=== PATIENT | male | born 1990 | race Caucasian/White ===

== ENCOUNTER 2019-07-31 15:41 | Inpatient (IN) | payer OTHER ==
[~2019-07-31] VITALS: Ht 172.7 cm; Wt 126.5 kg
[2019-07-31 16:54] LABS: BASOPHILS % (AUTO) 0.5 % (0.0-2.0); EOSINOPHILS % (AUTO) 0.3 % (1.0-6.0); HEMATOCRIT 46.5 % (41-53); HEMOGLOBIN 15.9 g/dL (13.5-17.5); LYMPHOCYTES # (AUTO) 1.4 K/uL (1.0-4.8); LYMPHOCYTES % (AUTO) 14.1 % (22.0-44.0); MEAN CORPUSCULAR HEMOGLOBIN 29.3 pg (26.0-34.0); MEAN CORPUSCULAR HGB CONC 34.2 G/dL (31.0-37.0); MEAN CORPUSCULAR VOLUME 86 fL (80-100); MONOCYTES # (AUTO) 0.6 K/uL (0.1-1.0); MONOCYTES % (AUTO) 5.7 % (2.0-9.0); NEUTROPHILS # (AUTO) 7.8 K/uL (1.8-7.7); NEUTROPHILS % (AUTO) 79.4 % (40.0-70.0); PLATELET COUNT (AUTO) 227 K/uL (150-450); RED BLOOD CELL COUNT(AUTO) 5.42 MIL/uL (4.50-5.90); RED CELL DISTRIBUTION WIDTH 13.6 % (11.5-14.5)
[2019-07-31 17:06] LABS: ANION GAP 8 mmol/L (8-16); CALCIUM, TOTAL 9.3 mg/dL (8.8-10.5); CARBON DIOXIDE 29 mmol/L (22-29); CHLORIDE 99 mmol/L (98-107); CREATININE 1.22 mg/dL (0.60-1.30); GLOMERULAR FILTR. RATE CALC > 60 mL/min (>60); GLUCOSE,RANDOM 104 mg/dL (70-110); POTASSIUM 3.8 mmol/L (3.5-5.1); SODIUM SERUM 136 mmol/L (136-145); UREA NITROGEN, BLOOD 15 mg/dL (7-18)
[2019-07-31 17:25] LABS: D-DIMER 0.18 mg/L FEU (0.00-0.50); PROTHROMBIN TIME 9.8 SEC (9.4-11.6)
[2019-07-31 17:27] LABS: B-TYPE NATRIURETIC PEPTIDE 14 pg/mL (0-100)
[2019-07-31 17:30] LABS: ALANINE AMINOTRANSFERASE 54 U/L (12-78); ALBUMIN 3.9 g/dL (3.4-5.0); ALKALINE PHOSPHATASE 124 U/L (46-116); ASPARTATE AMINOTRANSFERASE 23 U/L (15-37); BILIRUBIN,TOTAL 0.3 mg/dL (0.1-1.0); CREATINE KINASE, TOTAL ONLY 104 U/L (39-308); THYROID STIMULATING HORMONE 0.93 uIU/mL (0.36-3.74); TOTAL PROTEIN, SERUM 7.6 g/dL (6.4-8.2)
[2019-07-31] MEDS ORDERED: SODIUM CHLORIDE 0.9% IV ONE (18:24)
[2019-07-31] MEDS ORDERED: CefTRIAXone SODIUM 2 GM in DEXTROSE 5%-WATER 50 ML IV ONE (18:30)
[2019-07-31] MEDS ORDERED: AZITHROMYCIN 500 MG/NS 250 ML IV ONE (18:30)
[2019-07-31 18:57] LABS: AMPHET/METH SCREEN,URINE NEGATIVE (NEGATIVE); BARBITURATE SCREEN, URINE NEGATIVE (NEGATIVE); BENZODIAZEPINES SCREEN,URINE NEGATIVE (NEGATIVE); CANNABINOID SCREEN,URINE NEGATIVE (NEGATIVE); COCAINE SCREEN,URINE NEGATIVE (NEGATIVE); METHADONE SCREEN, URINE NEGATIVE (NEGATIVE); OPIATE SCREEN,URINE NEGATIVE (NEGATIVE)
[2019-07-31 18:58] LABS: APPEARANCE,URINE CLEAR (CLEAR); BILIRUBIN,URINE NEGATIVE (NEGATIVE); GLUCOSE, URINE (UA) NEGATIVE (NEGATIVE); KETONES,URINE NEGATIVE (NEGATIVE); LEUKOCYTE ESTERASE ,URINE NEGATIVE (NEGATIVE); NITRATE,URINE NEGATIVE (NEGATIVE); OCCULT BLOOD,URINE SMALL (NEGATIVE); PH,URINE 6.5 (5.0-8.0); PROTEIN,URINE SEE CONFIRM (NEGATIVE); UROBILINOGEN,URINE 0.2 mg/dL (<=1.0)
[2019-07-31 19:00] LABS: PHENCYCLIDINE SCREEN,URINE NEGATIVE (NEGATIVE)
[2019-07-31 19:13] LABS: SULFOSALICYLIC ACID,URINE 2+ (Negative)
[2019-07-31 19:14] LABS: BACTERIA,URINE None Seen /HPF (None Seen); RBC,URINE 0-2 /HPF (0-2); SQUAMOUS EPITHELIAL CELL,UR Few /LPF (None Seen); WBC,URINE 0-2 /HPF (0-5)
[2019-07-31 21:25] LABS: INFLUENZA TYPE A NEGATIVE FOR TYPE A (NEGATIVE); INFLUENZA TYPE B NEGATIVE FOR TYPE B (NEGATIVE)
[2019-07-31] MEDS ORDERED: ONDANSETRON HCL 4 MG/2 ML VIAL IVP PRN ×2 (22:00→22:15)
[2019-07-31] MEDS ORDERED: ACETAMINOPHEN 325 MG TABLET PO PRN ×2 (22:00→22:15)
[2019-07-31] MEDS ORDERED: MORPHINE SULFATE 2 MG/ML SYRINGE IVP PRN (22:15)
[2019-07-31] MEDS ORDERED: ZOLPIDEM TARTRATE 5 MG TABLET PO PRN (22:15)
[2019-07-31] MEDS ORDERED: IPRATROPIUM BROMIDE 0.5 MG/2.5 ML NEB SOLUTION NEB PRN (22:15)
[2019-07-31] MEDS ORDERED: ALBUTEROL SULFATE 2.5 MG/0.5 ML NEB SOLUTION NEB PRN (22:15)
[2019-07-31] MEDS ORDERED: SODIUM CHLORIDE 0.9% 1,000 ML IV ONE (22:15)
[2019-07-31] MEDS ORDERED: BISACODYL 10 MG RECTAL RECTAL SUPPOSITORY PR PRN (22:15)
[2019-07-31] MEDS ORDERED: MAGNESIUM HYDROXIDE SUSPENSION 30 ML UDCUP PO PRN (22:15)
[2019-07-31] MEDS ORDERED: HYDROCODONE/ACETAMINOPHEN 5-325 MG TABLET PO PRN (22:15)
[2019-07-31 22:55] LABS: PHOSPHORUS 2.9 mg/dL (2.5-4.9)
[2019-08-01] VITALS (10 sets, daily range): BP systolic 131–162; BP diastolic 81–116
[2019-08-01] MEDS: METOPROLOL TARTRATE 25 MG TABLET PO SCH ×3 (00:03→21:37)
[2019-08-01] MEDS: LEVOFLOXACIN 750 MG/D5% WATER 150 ML IV SCH (02:37)
[2019-08-01 07:11] LABS: BASOPHILS % (AUTO) 0.5 % (0.0-2.0); EOSINOPHILS % (AUTO) 0.5 % (1.0-6.0); HEMOGLOBIN 14.9 g/dL (13.5-17.5); LYMPHOCYTES # (AUTO) 1.7 K/uL (1.0-4.8); LYMPHOCYTES % (AUTO) 21.4 % (22.0-44.0); MEAN CORPUSCULAR HGB CONC 34.8 G/dL (31.0-37.0); MEAN CORPUSCULAR VOLUME 86 fL (80-100); MONOCYTES # (AUTO) 0.8 K/uL (0.1-1.0); MONOCYTES % (AUTO) 10.2 % (2.0-9.0); NEUTROPHILS # (AUTO) 5.4 K/uL (1.8-7.7); NEUTROPHILS % (AUTO) 67.4 % (40.0-70.0); PLATELET COUNT (AUTO) 193 K/uL (150-450); RED BLOOD CELL COUNT(AUTO) 4.98 MIL/uL (4.50-5.90); RED CELL DISTRIBUTION WIDTH 13.6 % (11.5-14.5)
[2019-08-01 07:21] LABS: ANION GAP 9 mmol/L (8-16); CALCIUM, TOTAL 8.5 mg/dL (8.8-10.5); CARBON DIOXIDE 26 mmol/L (22-29); CHLORIDE 104 mmol/L (98-107); CREATININE 1.07 mg/dL (0.60-1.30); GLOMERULAR FILTR. RATE CALC > 60 mL/min (>60); GLUCOSE,RANDOM 97 mg/dL (70-110); POTASSIUM 3.5 mmol/L (3.5-5.1); SODIUM SERUM 139 mmol/L (136-145); UREA NITROGEN, BLOOD 12 mg/dL (7-18)
[2019-08-01] MEDS: PANTOPRAZOLE SODIUM 40 MG DR TABLET PO SCH (08:55)
[2019-08-01] MEDS: DOCUSATE SODIUM 100 MG CAPSULE PO SCH ×2 (08:55→21:37)
[2019-08-01] MEDS: HEPARIN SODIUM,PORCINE 5,000 UNITS/ML VIAL SQ SCH ×3 (08:55→17:21)
[2019-08-01] MEDS: NICOTINE 14 MG/24 HOUR PATCH TD SCH (08:56)
[2019-08-01] MEDS ORDERED: METOPROLOL TARTRATE 25 MG TABLET PO SCH (09:00)
[2019-08-01] MEDS ORDERED: LEVO250T75 PO (11:16)
[2019-08-01] MEDS ORDERED: METO25 PO (11:16)
[2019-08-01] MEDS ORDERED: IOVERSOL 350 MG/ML 150 ML VIAL ONE (12:20)
[2019-08-01] MEDS ORDERED: SODIUM CHLORIDE 0.9% 100 ML ONE (12:21)
[2019-08-02] MEDS ORDERED: SODIUM CHLORIDE 0.9% 250 ML IV ONE (00:25)
[2019-08-02] MEDS: LEVOFLOXACIN 750 MG/D5% WATER 150 ML IV SCH (00:41)
[2019-08-02] MEDS: HEPARIN SODIUM,PORCINE 5,000 UNITS/ML VIAL SQ SCH ×3 (00:41→17:38)
[2019-08-02 04:56] VITALS: BP 149/104
[2019-08-02 07:25] VITALS: BP 142/111
[2019-08-02 07:46] LABS: BASOPHILS % (AUTO) 0.4 % (0.0-2.0); EOSINOPHILS % (AUTO) 1.3 % (1.0-6.0); HEMATOCRIT 44.6 % (41-53); HEMOGLOBIN 15.3 g/dL (13.5-17.5); LYMPHOCYTES # (AUTO) 1.8 K/uL (1.0-4.8); LYMPHOCYTES % (AUTO) 23.3 % (22.0-44.0); MEAN CORPUSCULAR HEMOGLOBIN 29.3 pg (26.0-34.0); MEAN CORPUSCULAR HGB CONC 34.2 G/dL (31.0-37.0); MEAN CORPUSCULAR VOLUME 86 fL (80-100); MONOCYTES # (AUTO) 0.8 K/uL (0.1-1.0); MONOCYTES % (AUTO) 10.7 % (2.0-9.0); NEUTROPHILS # (AUTO) 5.1 K/uL (1.8-7.7); NEUTROPHILS % (AUTO) 64.3 % (40.0-70.0); PLATELET COUNT (AUTO) 214 K/uL (150-450); RED BLOOD CELL COUNT(AUTO) 5.21 MIL/uL (4.50-5.90); RED CELL DISTRIBUTION WIDTH 13.7 % (11.5-14.5)
[2019-08-02 08:04] LABS: ANION GAP 8 mmol/L (8-16); CALCIUM, TOTAL 9.2 mg/dL (8.8-10.5); CARBON DIOXIDE 27 mmol/L (22-29); CHLORIDE 100 mmol/L (98-107); CREATININE 0.99 mg/dL (0.60-1.30); GLOMERULAR FILTR. RATE CALC > 60 mL/min (>60); GLUCOSE,RANDOM 92 mg/dL (70-110); POTASSIUM 4.1 mmol/L (3.5-5.1); SODIUM SERUM 135 mmol/L (136-145); UREA NITROGEN, BLOOD 11 mg/dL (7-18)
[2019-08-02] MEDS: METOPROLOL TARTRATE 25 MG TABLET PO SCH ×2 (08:15→21:08)
[2019-08-02] MEDS: PANTOPRAZOLE SODIUM 40 MG DR TABLET PO SCH (08:15)
[2019-08-02] MEDS: NICOTINE 14 MG/24 HOUR PATCH TD SCH (08:15)
[2019-08-02] MEDS: DOCUSATE SODIUM 100 MG CAPSULE PO SCH ×2 (08:16→21:08)
[2019-08-02 11:15] VITALS: BP 162/118
[2019-08-02 15:10] VITALS: BP 162/90
[2019-08-02] MEDS: AmLODIPine BESYLATE 5 MG TABLET PO SCH (17:38)
[2019-08-02 21:09] VITALS: BP 173/105
[2019-08-02 23:56] VITALS: BP 142/91
[2019-08-03 04:10] VITALS: BP 136/98
[2019-08-03 05:41] LABS: BASOPHILS % (AUTO) 0.6 % (0.0-2.0); EOSINOPHILS % (AUTO) 2.3 % (1.0-6.0); HEMATOCRIT 43.9 % (41-53); HEMOGLOBIN 15.2 g/dL (13.5-17.5); LYMPHOCYTES # (AUTO) 1.9 K/uL (1.0-4.8); LYMPHOCYTES % (AUTO) 24.7 % (22.0-44.0); MEAN CORPUSCULAR HEMOGLOBIN 29.8 pg (26.0-34.0); MEAN CORPUSCULAR HGB CONC 34.5 G/dL (31.0-37.0); MEAN CORPUSCULAR VOLUME 86 fL (80-100); MONOCYTES # (AUTO) 0.8 K/uL (0.1-1.0); MONOCYTES % (AUTO) 9.9 % (2.0-9.0); NEUTROPHILS # (AUTO) 4.7 K/uL (1.8-7.7); NEUTROPHILS % (AUTO) 62.5 % (40.0-70.0); PLATELET COUNT (AUTO) 219 K/uL (150-450); RED BLOOD CELL COUNT(AUTO) 5.08 MIL/uL (4.50-5.90); RED CELL DISTRIBUTION WIDTH 13.8 % (11.5-14.5)
[2019-08-03 05:47] LABS: ANION GAP 6 mmol/L (8-16); CALCIUM, TOTAL 9.1 mg/dL (8.8-10.5); CARBON DIOXIDE 28 mmol/L (22-29); CHLORIDE 103 mmol/L (98-107); CREATININE 1.15 mg/dL (0.60-1.30); GLOMERULAR FILTR. RATE CALC > 60 mL/min (>60); GLUCOSE,RANDOM 106 mg/dL (70-110); POTASSIUM 4.6 mmol/L (3.5-5.1); SODIUM SERUM 137 mmol/L (136-145); UREA NITROGEN, BLOOD 11 mg/dL (7-18)
[2019-08-03 08:08] VITALS: BP 158/118
[2019-08-03] MEDS: HEPARIN SODIUM,PORCINE 5,000 UNITS/ML VIAL SQ SCH ×2 (08:09)
[2019-08-03] MEDS: DOCUSATE SODIUM 100 MG CAPSULE PO SCH (08:09)
[2019-08-03] MEDS: AmLODIPine BESYLATE 5 MG TABLET PO SCH (08:09)
[2019-08-03] MEDS: METOPROLOL TARTRATE 25 MG TABLET PO SCH (08:09)
[2019-08-03] MEDS: NICOTINE 14 MG/24 HOUR PATCH TD SCH (08:18)
[2019-08-03] MEDS: PANTOPRAZOLE SODIUM 40 MG DR TABLET PO SCH (08:19)
[2019-08-03 11:08] VITALS: BP 145/111
[2019-08-03] MEDS ORDERED: AMLO5TAB9 PO (13:26)
[2019-08-03] MEDS ORDERED: AmLODIPine BESYLATE 5 MG TABLET PO SCH (13:45)
== END 2019-08-03 15:55 | disposition home or self-care (01) | DRG 644 ==
LOC: EMS 15:47 → 5N 22:50
PROVIDERS: ADMIT Internal Medicine; ATTEND Internal Medicine
PROC: 0GBH3ZX Excision of Right Thyroid Gland Lobe, Percutaneous Approach, Diagnostic (ICD-10-PCS; principal; 2019-08-03)
DX: E04.1 Nontoxic single thyroid nodule (principal); Z68.41 Body mass index [BMI] 40.0-44.9, adult; I10 Essential (primary) hypertension; E66.01 Morbid (severe) obesity due to excess calories; R00.2 Palpitations
CPT/HCPCS: 10022; 71275; 76536; 83605; 84100; 84439; 84443; 85379; 87040; 87430; 87804; 88173; 88321; 93005; 93306; J0456; J0696; J1644; J1956; J7050; J7060